=== PATIENT | female | born 1975 | race Caucasian/White ===

== ENCOUNTER 2019-07-31 11:54 | Emergency (ER) | payer MEDICAID ==
--- NOTE | 2019-07-31 12:57 | NUR ---
Patient triaged and placed in waiting room. VSS and patient appears in no acute distress at this time. Accompanied by self , awaiting available bed, and MD notified of need for MSE.
--- NOTE | 2019-07-31 12:58 | NUR ---
Per registration pt LWBS at [id number]
--- NOTE | 2019-07-31 13:00 | NUR ---
Note lauraone in EDM - 07/31/19 at 2007 by [email or web address] Patient triaged and placed in waiting room. VSS and patient appears in no acute distress at this time. Accompanied by self , awaiting available bed, and MD notified of need for MSE.
== END 2019-07-31 12:58 | disposition left against medical advice (07) ==
LOC: SED 11:54
DX: Z53.21 Procedure and treatment not carried out due to patient leaving prior to being seen by health care provider (principal)

== ENCOUNTER 2019-12-28 10:52 | Emergency (ER) | payer MEDICAID ==
[~2019-12-28] VITALS: Ht 157.5 cm; Wt 72.6 kg
[2019-12-28 11:05] VITALS: BP_SYST 133
--- NOTE | 2019-12-28 11:10 | NUR ---
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
[2019-12-28] MEDS ORDERED: ACET-2634 PO (11:22)
[2019-12-28] MEDS ORDERED: IBUP-2018 PO (11:22)
--- NOTE | 2019-12-28 12:36 | NUR ---
REASSESSMENT; PATIENT REMAINS UNCHANGED; TO RADIOLOGY; IV START LAC #18
[2019-12-28 13:10] LABS: BASOPHILS % (AUTO) 0.8 % (0.0-2.0); EOSINOPHILS # (AUTO) 0.1 K/uL (0.0-0.4); EOSINOPHILS % (AUTO) 2.6 % (0.0-4.0); HEMATOCRIT 37.4 % (36-48); HEMOGLOBIN 12.4 g/dL (12.0-16.0); LYMPHOCYTES # (AUTO) 1.1 K/uL (1.0-5.5); LYMPHOCYTES % (AUTO) 23.4 % (20.5-51.5); MEAN CORPUSCULAR HEMOGLOBIN 30 pg (27-31); MEAN CORPUSCULAR HGB CONC 33 % (32-36); MEAN CORPUSCULAR VOLUME 89 fL (79.0-98.0); MONOCYTES # (AUTO) 0.3 K/uL (0.0-1.0); MONOCYTES % (AUTO) 7.1 % (1.7-9.3); NEUTROPHILS % (AUTO) 66.1 % (40.0-70.0); PLATELET COUNT (AUTO) 240 K/uL (130-430); RED BLOOD CELL COUNT(AUTO) 4.22 MIL/uL (4.2-6.2); RED CELL DISTRIBUTION WIDTH 16.1 % (9.0-15.0); WHITE BLOOD COUNT (AUTO) 4.6 K/uL (4.8-10.8)
[2019-12-28 13:25] LABS: COLOR,URINE RED (YELLOW)
[2019-12-28 13:26] LABS: CLARITY/URINE SLIGHTLY CLOUDY (CLEAR); PH,URINE 5.5 (5.0-8.0)
[2019-12-28 13:27] LABS: GLUCOSE,URINE NEGATIVE (NEGATIVE); KETONES,URINE 1+ (NEGATIVE); PROTEIN URINE 2+ (NEGATIVE)
[2019-12-28 13:29] LABS: BILIRUBIN,URINE NEGATIVE (NEGATIVE); BLOOD, URINE 3+ (NEGATIVE)
[2019-12-28 13:30] LABS: LEUKOCYTE ESTERASE ,URINE 2+ (NEGATIVE); NITRITE, URINE POSITIVE (NEGATIVE)
[2019-12-28 13:36] LABS: RBC,URINE 80-100 /HPF (0-3)
[2019-12-28 13:39] LABS: CALCIUM 8.3 mg/dL (8.4-11.0); CREATININE 0.72 mg/dL (0.55-1.30); POTASSIUM 3.4 mmol/L (3.5-5.1)
[2019-12-28 13:40] LABS: BACTERIA,URINE FEW /HPF (None Seen)
[2019-12-28 13:41] LABS: CALCIUM OXALATE CRYSTALS,UR None Seen /HPF (None Seen); CALCIUM PHOSPHATE CRYSTALS,UR None Seen /HPF (None Seen); INR 0.9 (0.8-1.2); OTHER CRYSTALS,URINE None Seen /HPF (None Seen); PROTHROMBIN TIME 9.5 SECS (9.5-12.5); TRICHOMONAS,URINE None Seen /HPF (None Seen); TRIPLE PHOSPHATE CRYSTAL,UR None Seen /HPF (None Seen); URIC ACID CRYSTALS,URINE None Seen /HPF (None Seen); URINE AMORPHOUS PHOSPHATES None Seen /HPF (None Seen); URINE AMORPHOUS URATE None Seen /HPF (None Seen); YEAST,URINE None Seen /HPF (None Seen)
[2019-12-28 13:42] LABS: COARSE GRANULAR CASTS,URINE None Seen /LPF (None Seen); FINE GRANULAR CASTS,URINE None Seen /LPF (None Seen); HYALINE CASTS, URINE None Seen /LPF (None Seen); MUCUS,URINE None Seen /LPF (None Seen); OTHER CASTS, URINE None Seen /LPF (None Seen); WAXY CASTS,URINE None Seen /LPF (None Seen)
[2019-12-28 13:43] LABS: ALBUMIN 3.7 g/dL (3.4-4.8); TOTAL BILIRUBIN 0.3 mg/dL (0.0-1.0)
--- NOTE | 2019-12-28 13:57 | NUR ---
REASSESSMENT; PATIENT REMAINS SEDATE AND UNCHANGED; DISPOSITION PENDING
--- NOTE | 2019-12-28 14:01 | NUR ---
ONE LITER NORMAL SALINE WIDE OPEN PER VO ERMD
[2019-12-28 14:40] VITALS: BP_SYST 107
--- NOTE | 2019-12-28 14:41 | NUR ---
Patient given written and verbal discharge instructions and verbalizes understanding. ER discussed with patient the results and treatment provided. Patient in stable condition. ID arm band removed. IV catheter removed intact and dressing applied, no active bleeding. Rx of Macrobid 100 mg given. Patient educated on pain management and to follow up with PMD. Pain Scale 0/10. Opportunity for questions provided and answered. Medication side effect fact sheet provided.
== END 2019-12-28 14:40 | disposition home or self-care (01) ==
LOC: SED 10:52
DX: N39.0 Urinary tract infection, site not specified (principal); N92.0 Excessive and frequent menstruation with regular cycle
CPT/HCPCS: 36415; 74176; 80053; 81000; 81025; 82150; 83605; 83690; 84703; 85025; 85610; 85730; 87086; 99285; J7030

== ENCOUNTER 2024-03-03 21:20 | Emergency (ER) | payer OTHER, MEDICAID ==
[~2024-03-03] VITALS: Ht 157.5 cm; Wt 74.8 kg
[~2024-03-03 21:20] MED LIST: ACET-2634 PO; IBUP-2018 PO; NITR-85 PO; PHEN-726 PO
[2024-03-03 21:34] VITALS: BP_SYST 134; PULSE 126; RESP 20; TEMP 98.8; O2SAT 96
[2024-03-03] MEDS: NACL 0.9% 1,000 ML IV ONE (22:16)
[2024-03-03] MEDS: ONDANSETRON HCL 4 MG/2 ML VIAL IVP ONE (22:19)
[2024-03-03 22:43] LABS: BASOPHILS % (AUTO) 0.5 % (0.0-2.0); EOSINOPHILS # (AUTO) 0.1 K/uL (0.0-0.4); EOSINOPHILS % (AUTO) 1.9 % (0.0-4.0); HEMATOCRIT 31.9 % (36-48); HEMOGLOBIN 10.6 g/dL (12.0-16.0); LYMPHOCYTES # (AUTO) 2.2 K/uL (1.0-5.5); LYMPHOCYTES % (AUTO) 34.4 % (20.5-51.5); MEAN CORPUSCULAR HEMOGLOBIN 23 pg (27-31); MEAN CORPUSCULAR HGB CONC 33 % (32-36); MEAN CORPUSCULAR VOLUME 68 fL (79.0-98.0); MONOCYTES # (AUTO) 0.6 K/uL (0.0-1.0); MONOCYTES % (AUTO) 8.8 % (1.7-9.3); NEUTROPHILS # (AUTO) 3.5 K/uL (1.8-7.7); NEUTROPHILS % (AUTO) 54.4 % (40.0-70.0); PLATELET COUNT (AUTO) 318 K/uL (130-430); RED CELL DISTRIBUTION WIDTH 23.1 % (9.0-15.0); WHITE BLOOD COUNT (AUTO) 6.5 K/uL (4.8-10.8)
[2024-03-03 22:44] LABS: ALBUMIN 3.6 g/dL (3.4-4.8); BILIRUBIN,DIRECT 0.1 mg/dL (0.0-0.3); CALCIUM 8.6 mg/dL (8.4-11.0); CREATININE 0.84 mg/dL (0.55-1.30); TOTAL BILIRUBIN 0.2 mg/dL (0.0-1.0); TOTAL PROTEIN, SERUM 7.2 g/dL (6.4-8.3)
[2024-03-03 22:51] LABS: POTASSIUM 2.5 mmol/L (3.5-5.1)
[2024-03-03 22:55] LABS: BILIRUBIN,URINE NEGATIVE (NEGATIVE); BLOOD, URINE NEGATIVE (NEGATIVE); CLARITY/URINE CLEAR (CLEAR); COLOR,URINE YELLOW (YELLOW); GLUCOSE,URINE NEGATIVE (NEGATIVE); KETONES,URINE NEGATIVE (NEGATIVE); LEUKOCYTE ESTERASE ,URINE NEGATIVE (NEGATIVE); NITRITE, URINE NEGATIVE (NEGATIVE); PH,URINE 6.5 (5.0-8.0); PROTEIN URINE NEGATIVE (NEGATIVE); UROBILINOGEN,URINE 0.2 (0.2-1.0)
[2024-03-03] MEDS: POTASSIUM CHLORIDE 20 MEQ/PKT PACKET PO ONE (23:08)
[2024-03-03 23:12] LABS: ANISOCYTOSIS 2+; HYPOCHROMASIA 1+; OVALOCYTES FEW
[2024-03-03 23:41] LABS: BARBITURATE, URINE NEGATIVE (NEG <=200); BENZODIAZEPINE, URINE POSITIVE (NEG <=150)
[2024-03-03 23:42] LABS: CANNABINOID, URINE NEGATIVE (NEG <=50); COCAINE, URINE NEGATIVE (NEG <=150); METHAMPHETAMINES SCREEN,URINE NEGATIVE (NEG <=500); OPIATE, URINE NEGATIVE (NEG <=100); PHENCYCLIDINE SCREEN,URINE NEGATIVE (NEG <=25); UR TRICYCLIC ANTIDEPRESSANTS NEGATIVE (NEG <=300); URINE AMPHETAMINE NEGATIVE (NEG <=500); URINE METHADONE NEGATIVE (NEG <=200); URINE OXYCODONE SCREEN NEGATIVE (NEG <=100)
[2024-03-04] MEDS ORDERED: PRO40 PO (00:01)
[2024-03-04] MEDS ORDERED: ONDA-8 TL (00:01)
[2024-03-04 00:09] VITALS: BP_SYST 130; PULSE 98; RESP 18; TEMP 98.8; O2SAT 96
== END 2024-03-04 00:09 | disposition home or self-care (01) ==
LOC: SED 21:20
DX: K29.00 Acute gastritis without bleeding (principal); R11.2 Nausea with vomiting, unspecified; F17.200 Nicotine dependence, unspecified, uncomplicated; Z79.899 Other long term (current) drug therapy
CPT/HCPCS: 99283; 96374; 96361; 80307; 80076; 80048; 81001; 83690; 85025; 36415; 81025; 81003; J2405; J7030

== ENCOUNTER 2024-05-08 10:29 | Emergency (ER) | payer OTHER, MEDICAID ==
[~2024-05-08] VITALS: Ht 157.5 cm; Wt 71.7 kg
[~2024-05-08 10:29] MED LIST changes: +ONDA-8 TL; +PRO40 PO
[2024-05-08 10:46] VITALS: BP_SYST 117; PULSE 121; RESP 18; TEMP 98.3; O2SAT 97
[2024-05-08 11:21] LABS: BASOPHILS % (AUTO) 0.5 % (0.0-2.0); EOSINOPHILS % (AUTO) 0.2 % (0.0-4.0); HEMATOCRIT 34.1 % (36-48); HEMOGLOBIN 10.7 g/dL (12.0-16.0); LYMPHOCYTES # (AUTO) 1.2 K/uL (1.0-5.5); MEAN CORPUSCULAR HEMOGLOBIN 20 pg (27-31); MEAN CORPUSCULAR HGB CONC 31 % (32-36); MEAN CORPUSCULAR VOLUME 63 fL (79.0-98.0); MONOCYTES # (AUTO) 0.6 K/uL (0.0-1.0); MONOCYTES % (AUTO) 6.5 % (1.7-9.3); NEUTROPHILS # (AUTO) 6.9 K/uL (1.8-7.7); NEUTROPHILS % (AUTO) 78.8 % (40.0-70.0); PLATELET COUNT (AUTO) 235 K/uL (130-430); RED BLOOD CELL COUNT(AUTO) 5.43 MIL/uL (4.2-6.2); RED CELL DISTRIBUTION WIDTH 19.5 % (9.0-15.0); WHITE BLOOD COUNT (AUTO) 8.7 K/uL (4.8-10.8)
[2024-05-08] MEDS: NACL 0.9% 2,000 ML IV ONE (11:41)
[2024-05-08 11:42] LABS: BILIRUBIN,URINE NEGATIVE (NEGATIVE); BLOOD, URINE 3+ (NEGATIVE); COLOR,URINE YELLOW (YELLOW); GLUCOSE,URINE NEGATIVE (NEGATIVE); KETONES,URINE 3+ (NEGATIVE); LEUKOCYTE ESTERASE ,URINE 3+ (NEGATIVE); NITRITE, URINE NEGATIVE (NEGATIVE); PH,URINE 6.5 (5.0-8.0); PROTEIN URINE 1+ (NEGATIVE); UROBILINOGEN,URINE 0.2 (0.2-1.0)
[2024-05-08 11:44] LABS: SERUM HCG (QUALITATIVE) NEGATIVE (NEGATIVE)
[2024-05-08 11:44] LABS: CLARITY/URINE SLIGHTLY HAZY (CLEAR)
[2024-05-08 11:50] LABS: INR 0.9 (0.8-1.2); PROTHROMBIN TIME 9.9 SECS (9.5-12.5)
[2024-05-08] MEDS: LORazepam 2 MG/ML VIAL IVP ONE (11:52)
[2024-05-08 11:53] LABS: ALANINE AMINOTRANSFERASE 39 U/L (12-78); ALBUMIN 3.9 g/dL (3.4-4.8); AMYLASE 62 U/L (0-100); ANION GAP 18 (5-15); ASPARTATE AMINOTRANSFERASE 53 U/L (10-37); BILIRUBIN,DIRECT 0.2 mg/dL (0.0-0.3); CALCIUM 8.9 mg/dL (8.4-11.0); CARBON DIOXIDE 25 mmol/L (23-29); CHLORIDE 94 mmol/L (98-107); CREATININE 0.72 mg/dL (0.55-1.30); GFR AFRICAN AMERICAN 112 mL/min (>90); GLUCOSE 91 mg/dL (74-106); LIPASE 86 U/L (16-77); SODIUM SERUM 137 mmol/L (136-145); TOTAL BILIRUBIN 0.6 mg/dL (0.0-1.0); TOTAL PROTEIN, SERUM 8.3 g/dL (6.4-8.3); UREA NITROGEN, BLOOD 5 mg/dL (8-21)
[2024-05-08 11:55] LABS: GFR NON AFRICAN-AMERICAN 93 mL/min (>90)
[2024-05-08 11:56] LABS: POTASSIUM 2.9 mmol/L (3.5-5.1)
[2024-05-08 11:56] LABS: BACTERIA,URINE RARE /HPF (None Seen); HYALINE CASTS, URINE 0-1 /LPF (None Seen); MUCUS,URINE 1+ /LPF (None Seen); RBC,URINE >100 /HPF (0-3); WBC,URINE 20-50 /HPF (0-3)
[2024-05-08 12:42] LABS: ALCOHOL, BLOOD 371 mg/dL (<10)
[2024-05-08 13:01] LABS: ACETONE, SERUM NEGATIVE (NEGATIVE)
[2024-05-08 13:15] LABS: ACETONE, SERUM NEGATIVE (NEGATIVE)
[2024-05-08] MEDS ORDERED: LORA-259 PO (14:19)
[2024-05-08 14:28] VITALS: BP_SYST 116; PULSE 89; RESP 17; TEMP 98.3; O2SAT 100
== END 2024-05-08 14:20 | disposition home or self-care (01) ==
LOC: SED 10:29
DX: F10.129 Alcohol abuse with intoxication, unspecified (principal); R10.84 Generalized abdominal pain; R40.4 Transient alteration of awareness; R44.3 Hallucinations, unspecified; Z90.49 Acquired absence of other specified parts of digestive tract; Z79.899 Other long term (current) drug therapy; Y90.7 Blood alcohol level of 200-239 mg/100 ml
CPT/HCPCS: 99285; 70450; 96374; 96361; 80076; 80048; 82009; 82140; 82150; 84703; 83690; 85025; 85610; 85730; 87086; 36415; 74176; 83605; 82397; 81001; G0482; J2060; J7030; 81000; 81015